=== PATIENT | female | born 1950 | race Caucasian/White ===

== ENCOUNTER → 2018-04-18 | Outpatient (CLI) | payer OTHER ==
[~2018-04-18] MED LIST: ARMOUR THYROID60 M1 PO; FLAGYL500 MG PO; HEMP OIL PO; HYDROCORTISONE30 G9 RECTAL; LEVAQUIN 750 M750 MG PO; NEXIUM40 MG PO; PREDNISONE50 MG PO; PROTONIX40 M1 PO; ROBAXIN 750 MG750 M1 PO; ROPINIROLE HCL2 MG PO; SINGULAIR 10 MG10 MG PO; TESSALON PERLE100 MG PO; VENTOLIN HFA 1818 GM INH
== END ==
LOC: M.CT 10:18
DX: Z13.6 Encounter for screening for cardiovascular disorders (principal)

== ENCOUNTER → 2018-06-13 | Outpatient (CLI) | payer MEDICARE | LOC: M.RAD 13:19 | DX: Z13.820 Encounter for screening for osteoporosis (principal); M85.89 Other specified disorders of bone density and structure, multiple sites ==

== ENCOUNTER 2018-07-06 23:17 | Inpatient (IN) | payer MEDICARE ==
[~2018-07-06] VITALS: Ht 162.6 cm; Wt 81.6 kg
--- NOTE | ~2018-07-06 | PROC ---
[address] [address] PROCEDURE REPORT Name: TERESA WELSH Room: [address] IN .R.#: [id number] Admission: 07/07/18 Attend Phys: Milly Almanzar MD Discharge: 07/08/18 Date of : 50 Report #: [id number] THIS REPORT FOR: //name// For GI report, please see the Provation report in Perceptive 7 content. By: 1305Medical Records Staff MATTHEW /GRETCHEN
[~2018-07-06 23:17] MED LIST changes: -FLAGYL500 MG PO; -HEMP OIL PO; -HYDROCORTISONE30 G9 RECTAL; -NEXIUM40 MG PO; -PROTONIX40 M1 PO; -ROBAXIN 750 MG750 M1 PO; -ROPINIROLE HCL2 MG PO
[2018-07-06 23:27] VITALS: BP 156/87
[2018-07-06] MEDS ORDERED: ROBAXIN 750 MG750 M1 PO (23:31)
[2018-07-06] MEDS ORDERED: ROPINIROLE HCL2 MG PO (23:31)
[2018-07-06] MEDS ORDERED: HEMP OIL PO (23:32)
[2018-07-06 23:51] LABS: ABSOLUTE BASOPHILS 0.1 thou/uL (0.0-0.2); ABSOLUTE EOSINOPHILS 0.2 thou/uL (0.0-0.7); ABSOLUTE LYMPHOCYTES 1.5 thou/uL (0.8-5.3); ABSOLUTE MONOCYTES 0.7 thou/uL (0.0-1.2); ABSOLUTE NEUTROPHILS 6.2 thou/uL (1.6-8.1); EOSINOPHILS 2.5 %; HEMATOCRIT 37.9 % (37.0-47.0); HEMOGLOBIN 12.5 gm/dL (12.0-15.0); LYMPHOCYTES 17.5 %; MCH 29.8 pg (26.0-34.0); MCHC 32.9 g/dL (28.0-37.0); MCV 90.6 fL (80.0-100.0); MONOCYTES 8.1 %; MPV 8.3 fl. (7.2-11.1); NUCLEATED RBCS 0 /100WBC; PLATELET COUNT* 244 thou/uL (150-400); POLYS 70.9 %; RBC 4.18 mil/uL (4.20-5.00); RDW-CV 14.3 % (10.5-14.5); WBC 8.8 thou/uL (4.0-11.0)
[2018-07-07 00:04] LABS: CALCIUM 8.9 mg/dL (8.5-10.1); POTASSIUM 4.1 mmol/L (3.5-5.1)
[2018-07-07 00:05] LABS: URINE BILIRUBIN NEGATIVE (Negative); URINE BLOOD NEGATIVE (Negative); URINE CLARITY CLEAR; URINE COLOR YELLOW; URINE GLUCOSE-RANDOM NEGATIVE (Negative); URINE KETONES NEGATIVE (Negative); URINE LEUKOCYTES-REFLEX NEGATIVE (Negative); URINE NITRITE-REFLEX NEGATIVE (Negative); URINE PROTEIN NEGATIVE (Negative); URINE UROBILINOGEN 0.2 E.U./dl (0.2-1.0)
[2018-07-07 00:08] LABS: ALBUMIN 3.5 g/dL (3.4-5.0); PROTIME 9.9 Seconds (9.20-11.50); TOTAL BILIRUBIN 0.2 mg/dL (<0.1-1.0); TOTAL PROTEIN 7.4 g/dL (6.4-8.2)
[2018-07-07 01:21] LABS: URINE BILIRUBIN NEGATIVE (Negative); URINE BLOOD NEGATIVE (Negative); URINE CLARITY CLEAR; URINE COLOR YELLOW; URINE GLUCOSE-RANDOM NEGATIVE (Negative); URINE KETONES NEGATIVE (Negative); URINE LEUKOCYTES-REFLEX NEGATIVE (Negative); URINE NITRITE-REFLEX NEGATIVE (Negative); URINE PROTEIN NEGATIVE (Negative); URINE SPECIFIC GRAVITY <= 1.005 (1.005-1.030); URINE UROBILINOGEN 0.2 E.U./dl (0.2-1.0)
[2018-07-07 02:13] VITALS: BP 136/68
[2018-07-07 02:30] VITALS: BP 138/74
--- NOTE | 2018-07-07 04:18 | NUR ---
PT ARRIVED ON UNIT FROM ER AT 0230. PT ALERT AND ORIENTED X4 VS AND ASSESSMENT STABLE PT DENIES ANY COMPLAINTS. ASSISTED TO ROOM ORIENTED TO SURROUNDINGS. PT SLEPT AFTER THAT. WILL CONTINUE PLAN OF CARE.
[2018-07-07] MEDS ORDERED: NEXIUM40 MG PO (09:19)
[2018-07-07 09:23] VITALS: BP 123/61
[2018-07-07 16:22] VITALS: BP 112/65
--- NOTE | 2018-07-07 16:25 | NUR ---
ASSUMED CARE OF PATIENT AFTER MORNING REPORT AT APPROX 0720. ALERT AND ORIENTED X4. ASSESSMENT COMPLETED AND CHARTED. VSS ON ROOM AIR. PATIENT HAS HAD NO COMPLAINTS OF PAIN, NAUSEA OR SOA UPON MORNING ASSESSMENT. PATIENT CURRENTLY HAS A HEADACHE AND IS ASKING FOR SOMETHING FOR IT. PATIENT HAS HAD NO LOOSE STOOLS OR BLEEDING SINCE ADMISSION AND STATES THAT SHE WOULD LIKE TO DO ANY GI PROCEDURES OUTPATIENT SO THAT SHE CAN GO HOME TODAY. DR MCCOLLUM IS SEEING THE PATIENT AT THIS TIME TO DISCUSS WHAT NEEDS TO BE DONE. HOURLY ROUNDS MAINTAINED, CALL LIGHT IS WITHIN REACH, NURSING WILL CONTINUE TO MONITOR.
--- NOTE | 2018-07-07 16:58 | NUR ---
ASSUMED CARE OF PATIENT AT THIS TIME. REPORT RECEIVED FROM SHARON IBARRA.
[2018-07-08] VITALS: BP 110/63
[2018-07-08 01:33] VITALS: BP 110/63
[2018-07-08 03:41] LABS: HEMATOCRIT 34.6 % (37.0-47.0); HEMOGLOBIN 11.5 gm/dL (12.0-15.0); MCH 30.1 pg (26.0-34.0); MCHC 33.3 g/dL (28.0-37.0); MCV 90.3 fL (80.0-100.0); MPV 8.5 fl. (7.2-11.1); RBC 3.83 mil/uL (4.20-5.00); RDW-CV 14.1 % (10.5-14.5); WBC 6.4 thou/uL (4.0-11.0)
[2018-07-08 04:01] LABS: ALBUMIN 3.3 g/dL (3.4-5.0); CALCIUM 8.8 mg/dL (8.5-10.1); CREATININE 0.9 mg/dL (0.6-1.3); POTASSIUM 4.2 mmol/L (3.5-5.1); TOTAL BILIRUBIN 0.4 mg/dL (<0.1-1.0); TOTAL PROTEIN 6.7 g/dL (6.4-8.2)
--- NOTE | 2018-07-08 06:47 | NUR ---
PT COMPLETED BOWEL PREP WITH ABILITY TO DRINK 3/4 OF GOLYTLEY SOLUTION ORDERED. STOOL SEEN AT MIDNIGHT WAS CLEAR YELLOW WATER, PT STATES UP EARLIER THIS MORNING WITH STOOL THAT HAD "A LITTLE STUFF" IN THERE. INSTRUCTED TO LET NURSING STAFF SEE NEXT STOOL SHE HAS. LAC SL, ABX GIVEN ORDERED. HAS BEEN NPO SINCE MIDNIGHT, TAKING PROTONIX WITH SIP THIS MORNING. IV AND PO MED GIVEN FOR BACK SPASM AND DISCOMFORT AT HS WITH GOOD RELIED. CO HEADACHE THIS MORNING. AM LABS DRAWN. ABLE TO USE CALL LITE AND MAKE NEEDS KNOWN. UP AD SOLOMON IN ROOM. PT STATES SOME BLOOD OBSERVED IN STOOLS AT HS DURING BOWEL PREP EVACUATION.
[2018-07-08] MEDS ORDERED: PROTONIX40 M1 PO (09:13)
[2018-07-08] MEDS ORDERED: FLAGYL500 MG PO (09:13)
[2018-07-08] MEDS ORDERED: LEVAQUIN 750 M750 MG PO (09:13)
[2018-07-08 09:40] VITALS: BP 103/60
--- NOTE | 2018-07-08 10:47 | EKG ---
[place] [address] ELECTROCARDIOGRAM REPORT Name: TERESA WELSH Room: [address] ADM IN ..#: [id number] Admission: 07/07/18 Attend Phys: Milly Almanzar MD Discharge: Date of : 50 Report #: [id number] THIS REPORT FOR: //name// [facility] Test Date: 2018-07-08 Test Time: 09:10:51 Pat Name: TERESA WELSH Department: Room: [address] Gender: F Administrative Executive: : 1950 Requested By: Milly Almanzar Order Number: [id number] Reading : Ermias Giraldo Measurements Intervals [place] Rate: 70 P: 22 MO: 168 QRS: 28 QRSD: 92 T: 49 QT: 423 QTc: 457 Interpretive Statements Sinus rhythm Compared to ECG 07/07/2017 12:22:26 Sinus tachycardia no longer present Myocardial infarct finding no longer present Electronically Signed On 07-08-2018 10:47:31 CDT by Ermias Giraldo [email or web address] <ELECTRONICALLY SIGNED> By: Ermias Giraldo MD, [facility] 07/08/18 1047 0910 0910 Ermias Giraldo MD, [facility] /EPI
[2018-07-08 12:40] VITALS: BP 103/60
[2018-07-08 13:30] VITALS: BP 131/71
--- NOTE | 2018-07-08 14:59 | CON ---
[address] [address] CONSULTATION Name: TERESA WELSH Room: [address] IN ..#: [id number] Admission: 07/07/18 Attend Phys: Milly Almanzar MD Discharge: Date of : 50 Report #: [id number] THIS REPORT FOR: //name// CC: Kelly. Paul Almanzar HISTORY OF PRESENT ILLNESS: This is a pleasant 68-year-old female with past medical history of arthritis, restless legs syndrome, and back spasms, who is presenting with 2 episodes of hematochezia. The patient reports that she had a bowel movement associated with the passage of bright red colored blood, about 1 cupful. The patient initially assumed this was coming from her urine. Subsequently, she had another episode with about half the amount and then following her presentation to ER, she had a third episode with a much smaller amount of blood. She reports no significant abdominal pain, change in bowel habits, rectal pain, nausea or vomiting. She denies any significant weight loss. The patient had an EGD and a colonoscopy about 8 years back, both of which were unremarkable. She sees as outpatient: The patient denies. The patient denies additional symptoms such as fevers, chills, loss of consciousness, palpitations or postural syncope. PAST MEDICAL HISTORY: Significant for arthritis, for which she takes ibuprofen. The patient has been taking 2 tablets of ibuprofen a day for several years. The patient recently started taking for her back pain as well. PAST SURGICAL HISTORY: The patient had a hysterectomy in the past. SOCIAL HISTORY: The patient denies smoking, alcohol or recreational drug use. REVIEW OF SYSTEMS: A comprehensive 10-point review of systems is negative except for what is mentioned in the history of present illness. PHYSICAL EXAMINATION: VITAL SIGNS: Temperature 37.2, pulse rate 96, respirations 17, blood pressure 112/65, pulse of 100% on room air. GENERAL: The patient is alert, awake, oriented times 3 and is in no apparent distress. HEENT: Mucous membranes are moist. There is no congestion. Pupils are equal, round, reactive to light and accommodation. NECK: Supple. There is no supraclavicular lymphadenopathy. LUNGS: Clear to auscultation bilaterally. CARDIOVASCULAR: Rate and rhythm regular, S1, S2 present. ABDOMEN: Soft, no distention, no tenderness, no organomegaly. Bowel sounds are present. EXTREMITIES: Warm, well perfused. There is no edema. SKIN: Warm and dry. NEUROLOGIC: There [place] [id number] CONSULTATION Name: TERESA WELSH Room: [address] IN ..#: [id number] Admission: 07/07/18 Attend Phys: Milly Almanzar MD Discharge: Date of : 50 Report #: [id number] LABORATORY DATA: Hemoglobin 12.5, hematocrit 37.9, platelet count 244, WBC count 8. Sodium 139, potassium 4.1, chloride 103, bicarbonate 30, BUN 15, creatinine 1, bilirubin 0.2, AST 33, ALT 72, alkaline phosphatase 90. ASSESSMENT AND PLAN: This is a pleasant 68-year-old female with history significant for chronic nonsteroidal anti-inflammatory drug use. She was presented with painless hematochezia. Last colonoscopy was performed 8 years back and was unremarkable. We will proceed with esophagogastroduodenoscopy and colonoscopy tomorrow for evaluation of her hematochezia. Further recommendations will be based on the results of the testing. <ELECTRONICALLY SIGNED> By: Shaan Del Rosario MD 07/08/18 1459 1717 0025Shaan Del Rosario MD /nt
[2018-07-08] MEDS ORDERED: HYDROCORTISONE30 G9 RECTAL (15:41)
--- NOTE | 2018-07-08 16:38 | NUR ---
ASSUMED CARE OF PATIENT AFTER MORNING REPORT AT APPROX 0720. ALERT AND ORIENTED X4. ASSESSMENT COMPLETED AND CHARTED. VSS ON ROOM AIR. PATIENT SCHEDULED FOR EGD AND COLONOSCOPY TODAY. NO COMPLAINTS OF PAIN, NAUSEA, OR SOA. PATIENT TAKEN TO PACU AT 1300 AND RETURNED TO UNIT AT 1520. PATIENT VITAL STABLE ON ROOM AIR, COMPLETELY ALERT AND ORIENTED. PATIENT DISCHARGED AT 1600, ALL PERSONAL BELONGINGS, PRESCRIPTIONS AND DISCHARGE INFORMATION SENT WITH PATIENT.
== END 2018-07-08 16:00 | disposition home or self-care (01) | DRG 379 ==
LOC: M.ERS 23:17 → M.TBA-ER 07-07 01:37 → M.ORTHSURG 07-07 01:37
PROVIDERS: Emergency Medicine; Internal Medicine; ADMIT Internal Medicine
PROC: 0D758ZZ Dilation of Esophagus, Via Natural or Artificial Opening Endoscopic (ICD-10-PCS; principal; 2018-07-08)
PROC: 0DJD8ZZ Inspection of Lower Intestinal Tract, Via Natural or Artificial Opening Endoscopic (ICD-10-PCS; principal; 2018-07-08)
DX: K57.31 Diverticulosis of large intestine without perforation or abscess with bleeding (principal); K27.4 Chronic or unspecified peptic ulcer, site unspecified, with hemorrhage; M19.90 Unspecified osteoarthritis, unspecified site; K21.9 Gastro-esophageal reflux disease without esophagitis; G25.81 Restless legs syndrome; R13.10 Dysphagia, unspecified; M54.5 Low back pain; Z90.710 Acquired absence of both cervix and uterus; Z90.5 Acquired absence of kidney; Z79.899 Other long term (current) drug therapy; Z88.0 Allergy status to penicillin; Z88.2 Allergy status to sulfonamides; Z80.8 Family history of malignant neoplasm of other organs or systems

== ENCOUNTER → 2019-07-17 | Outpatient (CLI) | payer MEDICARE, OTHER ==
[~2019-07-17] MED LIST changes: +FLAGYL500 MG PO; +HEMP OIL PO; +HYDROCORTISONE30 G9 RECTAL; +NEXIUM40 MG PO; +PROTONIX40 M1 PO; +ROBAXIN 750 MG750 M1 PO; +ROPINIROLE HCL2 MG PO
== END | disposition home or self-care (01) ==
LOC: M.RAD 07-12 13:00
DX: M16.11 Unilateral primary osteoarthritis, right hip (principal); K21.9 Gastro-esophageal reflux disease without esophagitis; Z79.899 Other long term (current) drug therapy; Z88.0 Allergy status to penicillin; Z88.2 Allergy status to sulfonamides; Z90.710 Acquired absence of both cervix and uterus; Z98.890 Other specified postprocedural states

== ENCOUNTER 2021-01-05 11:09 | Observation (INO) | payer MEDICARE, OTHER ==
[~2021-01-05] VITALS: Ht 160 cm; Wt 81.6 kg
[~2021-01-05 11:09] MED LIST changes: +FAMOTIDINE 40 M40 M1 PO; +METHOCARBAMOL500 M2 PO; -NEXIUM40 MG PO; -ROBAXIN 750 MG750 M1 PO
[2021-01-05 11:10] VITALS: BP 157/77
[2021-01-05] MEDS ORDERED: ONDANSETRON ODT4 MG PO (11:22)
[2021-01-05] MEDS ORDERED: LEVOTHYROXINE88 MC1 PO (11:22)
[2021-01-05] MEDS ORDERED: TESSALON PERLE100 M1 PO (11:23)
[2021-01-05] MEDS ORDERED: VALTREX1000 MG PO (11:24)
[2021-01-05] MEDS ORDERED: ONE-A-DAY WOMENS PO (11:25)
[2021-01-05] MEDS ORDERED: BIOTIN1 MG PO (11:25)
[2021-01-05] MEDS ORDERED: RED YEAST RICE600 MG PO (11:25)
[2021-01-05] MEDS ORDERED: MILK THISTLE175 M4 PO (11:26)
[2021-01-05] MEDS ORDERED: D3-501250 MCG PO (11:26)
[2021-01-05 11:47] LABS: ABSOLUTE BASOPHILS 0.1 thou/uL (0.0-0.2); ABSOLUTE EOSINOPHILS 0.2 thou/uL (0.0-0.7); ABSOLUTE LYMPHOCYTES 1.5 thou/uL (0.8-5.3); ABSOLUTE MONOCYTES 0.6 thou/uL (0.0-1.2); ABSOLUTE NEUTROPHILS 4.7 thou/uL (1.6-8.1); BASOPHILS 1.1 %; EOSINOPHILS 2.2 %; HEMATOCRIT 39.1 % (37.0-47.0); HEMOGLOBIN 13.2 gm/dL (12.0-15.0); MCH 30.2 pg (26.0-34.0); MCHC 33.9 g/dL (28.0-37.0); MCV 89.1 fL (80.0-100.0); MONOCYTES 8.2 %; MPV 8.3 fl. (7.2-11.1); NUCLEATED RBCS 0 /100WBC; PLATELET COUNT* 221 thou/uL (150-400); POLYS 67.5 %; RBC 4.39 mil/uL (4.20-5.00); RDW-CV 14.2 % (10.5-14.5)
[2021-01-05 11:52] LABS: CREATININE 0.9 mg/dL (0.6-1.3); POTASSIUM 3.9 mmol/L (3.5-5.1)
[2021-01-05 12:02] LABS: ALBUMIN 3.7 g/dL (3.4-5.0); MAGNESIUM 1.9 mg/dL (1.8-2.4); TOTAL BILIRUBIN 0.4 mg/dL (<0.1-1.0); TOTAL PROTEIN 7.3 g/dL (6.4-8.2)
[2021-01-05 16:15] VITALS: BP 138/79
[2021-01-05 16:25] VITALS: BP 129/60
[2021-01-05 20:10] VITALS: BP 125/66
[2021-01-06] VITALS (8 sets, daily range): BP systolic 101–119; BP diastolic 56–70
[2021-01-06 04:52] LABS: CHOLESTEROL 183 mg/dL (<200); HDL CHOLESTEROL 42 mg/dL (>40); LDL CHOLESTEROL 119 mg/dL (<100); TC:HDL 4.4 Ratio (Not establshd); TRIGLYCERIDE 111 mg/dL (<150); VLDL 22 mg/dL (<40)
[2021-01-06 04:59] LABS: SERUM ASSESSMENT CLEAR
--- NOTE | 2021-01-06 13:41 | EKG ---
[place] [address] ELECTROCARDIOGRAM REPORT Name: TERESA WELSH Room: [address]#: [id number] Admission: 01/05/21 Attend Phys: Cody Khoury, Discharge: Date of : 50 Date of Service: 01/05/21 1115 Report #: [id number] THIS REPORT FOR: //name// [facility] ED Test Date: 2021-01-05 Test Time: 11:15:50 Pat Name: TERESA WELSH Department: Room: [facility] Gender: F [employer] Sales Representative: LD : 1950 Requested By: Lenard Guo Order Number: [id number] MD: Celestine Man Measurements Intervals [place] Rate: 87 P: 34 TX: 156 QRS: 23 QRSD: 98 T: 44 QT: 378 QTc: 455 Interpretive Statements Sinus rhythm Anterior infarct, old Baseline wander in lead(s) V3 Compared to ECG 07/08/2018 09:10:51 Myocardial infarct finding now suggested Electronically Signed On 01-06-2021 13:40:54 AGENT BROKER by Celestine Man [email or web address] <ELECTRONICALLY SIGNED> By: Celestine Man MD, [facility] 01/06/21 1340 1115 1115 Celestine Man MD, [facility] /EPI
--- NOTE | 2021-01-07 08:55 | CARDNUC ---
[place] [address] CARDIAC NUCLEAR IMAGING REPORT Name: TERESA WELSH Room: [address]#: [id number] Admission: 01/05/21 Attend Phys: Cody Khoury, Discharge: 01/06/21 Date of : 50 Date of Service: 01/07/21 0855 Report #: [id number] THIS REPORT FOR: cc: Dylon Miller MD, Arthur MD Liston, Michael J. MD [facility] ~ APPROVED REPORT Imaging Protocol: Stress Tc-99m/Rest Tc-99m 1 day Study performed: 01/06/2021 08:21:00 Indication: Chest pain. Patient Location: In-Patient Room #: 219 Stress Tech: Digna Huynh Stress Nurse: Lillian Cárdenas RN Ht: 5 ft 3 in Wt: 180 lbs BSA: 1.85 m2 BMI: 31.88 Medical History Medical History: Chest pain, GERD, transient HTN, Howell's esophagus, HTN, HLD, Family HX CAD with Grandfather. Medications: ASA 325 Mg , NTG in E.D. , home meds include Red Yeast Rice. Allergies: PNC, Sulfa ABX. Cardiac Risk Factors: Age, FHX of CAD, HTN, Hyperlipidemia. Previous Cardiac Procedures: None Pretest Chest Pain Characteristics: No chest pain Exercise History: Indeterminate Physical Disabilities: Hip and knee pain bilaterally. Meds Held (24 hrs): None Resting Data Rest SPECT myocardial perfusion imaging was performed in supine position 45 minutes following the intravenous injection of 10.5 mCi of Tc-99m Sestamibi. Time of rest injection: 15:00 The images were gated to evaluate regional wall motion and calculate left ventricular ejection fraction. Administration Route: IV Administration Site: Right [place] [address] CARDIAC NUCLEAR IMAGING REPORT Name: TERESA WELSH Room: [address] M..#: [id number] Admission: 01/05/21 Attend Phys: Cody Galvezyanely, Discharge: 01/06/21 Date of : 50 Date of Service: 01/07/21 0855 Report #: [id number] Pharmacologic stress test was performed by injecting Regadenoson 0.4 mg IV push over 10-15 seconds immediately followed by the intravenous injection of 34.4 mCi of Tc-99m Sestamibi. Time of stress injection: 16:35 Administration Route: IV Administration Site: Right AC Heart Rate at time of stress injection: 130 bpm. Gated Stress SPECT was performed 40 minutes after stress injection. The images were gated to evaluate regional wall motion and calculate left ventricular ejection fraction. Prone imaging was performed. Stress Test Details Stress Test: Pharmacologic stress was paired with low level exercise. Reason for pharmacologic stress test: Hip and knee pain bilaterally.. HR Max Heart Rate (APMHR): 150 bpm Resting HR: 83 bpm Target HR (85% APMHR): 127 bpm Max HR Achieved: 130 bpm % of APMHR: 86 Recovery HR: 102 bpm BP Resting BP: 121/64 mmHg Max BP: 186/73 mmHg Recovery BP: 143/73 mmHg ECG Resting ECG: Sinus Rhythm Stress ECG: Sinus Tachycardia ST Change: Downsloping ST depression Maximum ST Deviation: 1 mm Arrhythmia: None Recovery ECG: Sinus Rhythm Recovery ST Change: Downsloping ST depression Recovery ST Deviation: 1 mm Recovery Arrhythmia: None Clinical Reason for Termination: Completed protocol Stress Symptoms: chest heaviness 4/10, dyspnea, headache. Exercise duration: 4 min 00 sec Exercise capacity: 2.30 METs The patient tolerated walking Lexiscan [place] [address] CARDIAC NUCLEAR IMAGING REPORT Name: TERESA WELSH Jermaine Room: [address] Allie#: [id number] Admission: 01/05/21 Attend Phys: Cody Khoury, Discharge: 01/06/21 Date of : 50 Date of Service: 01/07/21 0855 Report #: [id number] cardiac symptoms. Nurse Comments A 70 YEAR OLD FEMALE INPATIENT PRESENTED FOR A WALKING LEXISCAN NUCLEAR STRESS TEST. TEST WELL TOLERATED. RECOVERY UNREMARKABLE. PATIENT WAS STABLE AND STATED SHE FELT GOOD WHEN ESCORTED VIA WHEELCHAIR TO NUCLEAR MEDICINE FOR IMAGING. Stress ECG Conclusion Baseline twelve-lead EKG shows sinus rhythm without any significant ST segment depression. EKGs obtained during and post walking Lexiscan protocol show [address] segment depression in the anterolateral leads. There were no stress-induced arrhythmias. Study Quality Study: Good Artifact: No artifact Study Data At rest, the left ventricular ejection fraction was 75%.. Post stress, the left ventricular ejection was 77%.. TID = 0.88. Perfusion Perfusion studies obtained at rest and post stress show uniform uptake of the radioisotope throughout the myocardium. There were no defects to suggest infarct or ischemia. Wall Motion Normal left ventricular wall motion. Nuclear Conclusion ECG Findings: equivocal Clinical Findings: negative for ischemia Nuclear Findings: negative for ischemia Exercise Capacity: not assessed Left Ventricular Function: normal Risk Study: low Perfusion study show no defect to suggest infarct or ischemia. Left ventricular systolic function is normal on gated studies. This is a low risk study. Abnormal EKG findings are likely a false positive. <Conclusion> Baseline twelve-lead EKG shows sinus rhythm without any significant ST segment depression. EKGs obtained during [place] [address] CARDIAC NUCLEAR IMAGING REPORT Name: TERESA WELSH Room: [address] Allie#: [id number] Admission: 01/05/21 Attend Phys: Cody Khoury, Discharge: 01/06/21 Date of : 50 Date of Service: 01/07/21 0855 Report #: [id number] Lexiscan protocol show [address] segment depression in the anterolateral leads. There were no stress-induced arrhythmias. <ELECTRONICALLY SIGNED> By: Sammy Banegas MD, FACC 01/07/21 0855 4 4 Sammy Banegas MD, FACC /INF
== END 2021-01-06 20:45 | disposition home or self-care (01) ==
LOC: M.ERS 11:09 → M.2W 12:33 → M.TBA-ER 12:33 → M.2W 16:24
PROVIDERS: Emergency Medicine Emergency Medical Services; ADMIT Internal Medicine; ATTEND Internal Medicine
DX: R07.89 Other chest pain (principal); I10 Essential (primary) hypertension; E03.9 Hypothyroidism, unspecified; K21.9 Gastro-esophageal reflux disease without esophagitis; K58.9 Irritable bowel syndrome, unspecified; E66.9 Obesity, unspecified; E78.5 Hyperlipidemia, unspecified; K22.70 Barrett's esophagus without dysplasia; Z68.31 Body mass index [BMI] 31.0-31.9, adult; Z79.899 Other long term (current) drug therapy; Z20.822 Contact with and (suspected) exposure to COVID-19